=== PATIENT | female | born 1935 | race Caucasian/White ===

== ENCOUNTER → 2018-03-02 | Day surgery (SDC) | payer OTHER ==
[2018-02-27 15:59] LABS: BASOPHILS # (AUTO) 0.1 (0.0-0.1); BASOPHILS % 0.7 % (0.0-1.0); EOSINOPHILS # (AUTO) 0.3 (0.0-0.4); EOSINOPHILS % 4.4 % (0.0-6.0); HEMATOCRIT 41.9 % (34.2-44.1); HEMOGLOBIN 13.6 g/dL (12.0-16.0); LYMPHOCYTES # (AUTO) 1.9 (1.0-3.2); LYMPHOCYTES % 26.4 % (18.0-39.1); MEAN CORPUSCULAR HEMOGLOBIN 32.1 pg (28-32); MEAN CORPUSCULAR HGB CONC 32.5 g/dL (31-35); MEAN CORPUSCULAR VOLUME 98.8 fL (81-99); MONOCYTES # (AUTO) 0.4 (0.2-0.8); MONOCYTES % 6.3 % (4.4-11.3); NEUTROPHILS # (AUTO) 4.4 (2.1-6.9); NEUTROPHILS % 62.1 % (38.7-80.0); PLATELET COUNT 213 x10e3/uL (140-360); RED BLOOD COUNT 4.24 x10e6/uL (3.6-5.1); RED CELL DISTRIBUTION WIDTH 12.4 % (11.7-14.4)
--- NOTE | 2018-02-27 16:48 | Diagnostic Imaging Report ---
EXAMINATION: CHEST 2 VIEWS INDICATION: Pre-op COMPARISON: None FINDINGS: TUBES and LINES: None. LUNGS: Lungs are well inflated. Lungs are clear. There is no evidence of pneumonia or pulmonary edema. PLEURA: No pleural effusion or pneumothorax. HEART AND MEDIASTINUM: The cardiomediastinal silhouette is unremarkable. Extensive atherosclerotic calcifications of the thoracic aorta. BONES AND SOFT TISSUES: No acute osseous lesion. Soft tissues are unremarkable. UPPER ABDOMEN: No free air under the diaphragm. IMPRESSION: No acute radiographic abnormality. Signed by: Dr. Shravan Cohen MD on 02/27/2018 4:44 PM
[~2018-03-02] MED LIST: AMLODIPINE BESYL5 MG PO; CALCIUM600 MG PO; CEFTRIAXONE SOD 1 GM/NS 50 ML 50 ML IV ONE; DEXAMETHASONE SOD PHOS INJ 4 MG/ML VIAL ONE; EVISTA60 MG PO; FENTANYL CITRATE/PF 100MCG/2 ML INJ ONE; IOPAMIDOL 610MG/1ML 300 MG/ML VIAL IV ONE; LIDOCAINE HCL 2% LOCAL INJ 5 ML SDV VIAL INJ ONE; METOPROLOL SUCC25 MG PO; OMEPRAZOLE40 MG PO; ONDANSETRON HCL INJ 2MG/ML 2ML 2 MG/ML VIAL ONE; PROPOFOL IV EMULSION 10 MG/ML 20 ML VIAL ONE; SEVOFLURANE INHAL SOLN 250 ML PEN BTL ONE; SIMVASTATIN20 MG PO; ULTRAM 50MG50 MG PO; VITAMIN D32000 UNIT PO
--- OUTSIDE RECORDS SUMMARY | 2018-03-02 05:39 | XMS REPORT ---
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 Assessment Atypical chest pain R07.89 Active Assessment Reflux esophagitis K21.0 Active Problem 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 Problem Pure hypercholesterolemia E78.00 Active Problem Reflux esophagitis K21.0 Active Problem Pure hypercholesterolemia 272.0 Active Problem Benign hypertensive heart disease without heart failure 402.10 Active Problem 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 Problem 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 intermittent claudication 440.21 Active Medications Medication Code System Code Instructions Start Date End Date Status Dosage NITROGLYCER NDC 0 0.4MG SUB PRN Active as directed Omeprazole ND 12039545446 40 MG Orally Once a day Active 1 capsule Tramadol HCl ND 56873321524 50 MG Orally every 6 hrs Active 1 tablet as needed Calcium ND 60756245392 1200 MG Orally once a day Active 1 tablet Amlodipine Besylate ND 83658610885 5 MG Orally Once a day Active 1 tablet Nitrolingual ND 84095713386 0.4 MG/SPRAY Translingual every 8 hrs Active 1 puff Raloxifene HCl ND 77542028512 60 MG Orally Once a day Active 1 tablet Nitroglycerin ND 46342864699 0.4 MG Sublingual As directed Mar 06, 2017 Active as directed Simvastatin ND 12115658019 20 MG Orally Once a day Active 1 tablet every evening Vital Signs Date/Time: Mar 06, 2017 BMI 27.73 Index Weight 142 lbs Height 5'2 in Cardiac Monitoring Heart Rate 68 /min Blood Pressure Diastolic 70 mm Hg Blood Pressure Systolic 130 mm Hg Results No Known Results Summary Purpose [employer] Submission
--- OUTSIDE RECORDS SUMMARY | 2018-03-02 05:39 | XMS REPORT | Summary of Care ---
Author Organization Unknown Address Unknown Phone Unavailable Encounter Dates Location Diagnoses Discharge Providers Disposition 03/27/2013 [facility] Final: Disorder Home Claudia Molina [facility] and Claudia Molina 03/27/2013 [id number] [place] [facility], [address] , [facility] Unspecified Final: Unspecified Essential Hypertension Final: Coronary Atherosclerosis of [place] Coronary Artery Final: Pure Hypercholestero lemia Final: Osteoporosis, Unspecified Final: Arthropathy, Unspecified, Site Unspecified Final: Long-Term (Current) Use of Other Medications Reason for Visit SACRUM BIOPSY Vital Signs Most recent to 1 oldest [Reference Range]: Height 157.48 cm (03/27/2013 08:02:00 [facility]/[place]) Weight 72.727 kg (03/27/2013 08:02:00 [facility]) Body Mass Index 29.33 m2 (03/27/2013 08:02:00 [facility]) Problem List Condition Effective Dates Status Health Status Informant Arthritis(Confirmed) Active Cholesterol Active level(Confirmed)1 Hypertension(Confirm Active ed) Osteoporosis(Confirm Active ed) 1abnormal Allergies, Adverse Reactions, Alerts Status Substance Reaction Severity Active codeine Active Vicodin Medications Medication Instructions Start Date Stop Date Status tramadol 50 mg oral 50 mg=1 tab, PO, Q6H, Pain, # 40 03/27/2013 04/06/2013 Ordered tablet tab, 0 Refill(s) Medications Administered During Your Visit No data available for this section Immunizations Vaccine Date Refusal Reason tetanus-diphtheria toxoids 08/05/2010 Procedures Procedure Type Body Site Date of Procedure Related Diagnosis Biopsy of Bone Marrow 03/27/2013 00:00:00 [facility] Biopsy of bone using computed tomography (CT) guidance1 03/27/2013 00:00:00 [facility] Bone marrow; biopsy, needle or trocar 03/27/2013 00:00:00 [facility] Breast reduction, bilateral 2003 Computed tomography guidance for needle placement (eg, biopsy, aspiration, injection, localization device), radiological supervision and interpretation 03/27/2013 00:00:00 [facility] Hysterectomy Other Computerized Axial Tomography 03/27/2013 00:00:00 [facility] 1sacrum lesion Social History Social History Type Response Alcohol Current, Type Beer. Frequency: 1-2 times per week. Previous treatment: None. Alcohol use interferes with work or home: No. Drinks more than intended: No. Others hurt by drinking: No. Ready to change: No. Household alcohol concerns: No. Smoking Status Use: Former smoker. Type: Cigarettes. Tobacco smoke exposure: None. Did the Patient Smoke Cigarettes Anytime During the Last 365 Days? No. Cessation Counseling Provided? No.1 1quit 40 years ago Assessment and Plan Extracted from: Title: IR Sacral Biopsy Author: Will Wang Date: 03/27/2013 PROCEDURE REQUESTED: Needle biopsy sclerotic lesion left sacral wing REQUESTING PHYSICIAN: Claudia Molina MD HISTORY/INDICATIONS: 1cm densly sclerotic lesion in marrow left sacral wing, new finding since old imaging studies in 2006 and 2007. Lesion found incidentally during workup for right hip pain. No left sided symptoms. Weak FDG uptake in lesion and surrounding marrow on PET/CT. No history primary neoplasm. MEDICAL: Hypertension, CAD, hypercholesterol, osteoporosis, arthritis PROCEDURAL HISTORY: Heart cath 2006 and 2010, breast biopsy 2003, hernia repair, bilateral breast reduction 2002, hysterectomy MEDICATIONS: Metoprolol, amlopidine, NTG prn, simvistatin, tramadol, imdur ALLERGIES:Codeine, Vicoden PHYSICAL FINDINGS: BP 137/66 P 79 R 11 Alert, oriented, no acute distress SaO2 100% ETCO2 34 Regular rythym IMPRESSION: New sclerotic lesion left sacral wing PLAN: Needle biopsy sclerotic lesion left sacral wing with CT. Discussed procedure and risks with patient and , including nerve injury (lesion is subcortical anteriorly with lumbosacral plexus just on the other side) and non- diagnostic procedure due to difficulty targeting or inconclusive histology. ASA: II
--- OUTSIDE RECORDS SUMMARY | 2018-03-02 05:39 | XMS REPORT | CCD ---
Author Author Auto Generated Organization [facility] Address Unknown Phone Unavailable Care Team Providers Care Counter Supply Worker Name Role Phone Reyna Roth CP Allergies, Adverse Reactions, Alerts Substance Reaction Status codeine Active Vicodin Active Medications Medication Instructions Start Date End Date Status tetanus-diphtheria 0.5 ml, Route: IM, ONCE, Start 08/05/2010 08/05/2010 Completed toxoids date: 08/05/10 18:43:00, Stop date: 08/05/10 18:43:00 Immunizations Vaccine Date Status tetanus-diphtheria toxoids 08/05/2010 Auth (Verified)
--- OUTSIDE RECORDS SUMMARY | 2018-03-02 05:39 | XMS REPORT | Summary of Care ---
Author Author [facility] Organization [facility] Address Unknown Phone Unavailable Encounter HQ Kera(FIN) [id number] Date(s): 10/17/17 - 10/17/17 [facility] [address] [facility] [place] [phone] Discharge Disposition: Home or Self Care Attending Physician: Edie Mason MD Vital Signs Most recent to 1 oldest [Reference Range]: Height 157.48 cm (10/17/17 7:16 PM) Temperature Oral 97.1 DegF [96.4-99.1 DegF] (10/17/17 7:16 PM) Blood Pressure 149/69 mmHg [90-140/60-90 mmHg] *HI* (10/17/17 7:16 PM) Respiratory Rate 18 BRMIN [14-20 BRMIN] (10/17/17 7:16 PM) Peripheral Pulse 89 bpm Rate [60-100 bpm] (10/17/17 7:16 PM) Weight 64.545 kg (10/17/17 7:16 PM) Body Mass Index 26.03 m2 (10/17/17 7:16 PM) Problem List Condition Effective Dates Status Health Status Informant Arthritis(Confirmed) Active Cholesterol Active level(Confirmed)1 Hypertension(Confirm Active ed) Osteoporosis(Confirm Active ed) 1abnormal Allergies, Adverse Reactions, Alerts Substance Reaction Severity Status codeine Active Vicodin Active Medications ciprofloxacin 500 mg oral tablet 500 mg=1 tab, PO, Q12H, X 7 day, # 14 tab, 0 Refill(s), Pharmacy: [facility] [id number] Start Date: 10/17/17 Stop Date: 10/24/17 Status: Completed raloxifene 60 mg oral tablet 60 mg=1 tab, PO, Daily, # 30 tab, 0 Refill(s) Start Date: 10/17/17 Stop Date: 11/16/17 Status: Ordered Results URINE AND STOOL Most recent to 1 oldest [Reference Range]: POC UA Turbidity Cloudy [Clear] *ABN* (10/17/17 7:40 PM) POC UA Color Marisol [Yellow] *ABN* (10/17/17 7:40 PM) POC UA pH [5.0-8.0] 6.5 (10/17/17 7:40 PM) POC UA SG [<=1.030] 1.010 (10/17/17 7:40 PM) POC UA Glu [Negative Negative mg/dL mg/dL] *NA* (10/17/17 7:40 PM) POC UA Bld Large [Negative] *ABN* (10/17/17 7:40 PM) POC UA Ket [Negative Negative mg/dL mg/dL] *NA* (10/17/17 7:40 PM) POC UA Prot Trace mg/dL [Negative mg/dL] *ABN* (10/17/17 7:40 PM) POC UA Uro [0.1-1.0 0.2 EU/dL EU/dL] (10/17/17 7:40 PM) POC UA Bili Negative [Negative] *NA* (10/17/17 7:40 PM) POC UA LeukEst Large [Negative] *ABN* (10/17/17 7:40 PM) POC UA Nit Positive [Negative] *ABN* (10/17/17 7:40 PM) Immunizations Given and Recorded Vaccine Date Status Refusal Reason tetanus-diphtheria toxoids 08/05/10 Given Procedures Procedure Date Related Diagnosis Body Site Status Biopsy of bone using computed tomography (CT) 03/27/13 Completed guidance1 Breast reduction, bilateral 2002 Completed Hysterectomy Completed 1sacrum lesion Social History Social History Type Response Alcohol Current, Type Beer. Frequency: 1-2 times per week. Previous treatment: None. Alcohol use interferes with work or home: No. Drinks more than intended: No. Others hurt by drinking: No. Ready to change: No. Household alcohol concerns: No. Smoking Status Former smoker; Type: Cigarettes; Ready to change: No; Concerns about tobacco use in household: No; Exposure to Tobacco Smoke None; Cigarette Smoking Last 365 Days No; Reg Smoking Cessation Counseling No1 entered on: 10/17/17 1quit 40 years ago Assessment and Plan No data available for this section
--- OUTSIDE RECORDS SUMMARY | 2018-03-02 05:39 | XMS REPORT | Summary of Care ---
Author Author [facility] Organization [facility] Address Unknown Phone Unavailable Encounter HQ Encntr_alimayela(FIN) [id number] Date(s): 03/18/15 - 03/18/15 [facility] [address] [place] [address]- Final: Functional dyspepsia Discharge Disposition: Home Attending Physician: Anthony Lei MD Referring Physician: Anthony Lei MD Vital Signs No data available for this section Problem List Condition Effective Dates Status Health Status Informant Arthritis(Confirmed) Active Cholesterol Active level(Confirmed)1 Hypertension(Confirm Active ed) Osteoporosis(Confirm Active ed) 1abnormal Allergies, Adverse Reactions, Alerts Substance Reaction Severity Status codeine Active Vicodin Active Medications No data available for this section Results No data available for this section Immunizations Vaccine Date Refusal Reason tetanus-diphtheria toxoids 08/05/10 Procedures Procedure Date Related Diagnosis Body Site Biopsy of bone using computed tomography (CT) 03/27/13 guidance1 Breast reduction, bilateral 2003 Hysterectomy 1sacrum lesion Social History Social History Type Response Alcohol Current, Type Beer. Frequency: 1-2 times per week. Previous treatment: None. Alcohol use interferes with work or home: No. Drinks more than intended: No. Others hurt by drinking: No. Ready to change: No. Household alcohol concerns: No. Smoking Status Former smoker; Type: Cigarettes; Exposure to Tobacco Smoke None; Cigarette Smoking Last 365 Days No; Reg Smoking Cessation Counseling No1 1quit 40 years ago Assessment and Plan No data available for this section
--- OUTSIDE RECORDS SUMMARY | 2018-03-02 05:39 | XMS REPORT | Continuity of Care Document ---
Author Author [facility] Interface Address Unknown Phone Unavailable Problems Problem Status Onset Date Classification Date Reported Comments Source UTI Active 11/10/2017 [facility] I10/V85.21/E66.3/R13.10/K30 Active 03/04/2015 [facility] SACRUM BIOPSY Active 03/22/2013 [facility] SACRAL LESION/ABN CT Active 03/11/2013 [facility] Final: Functional dyspepsia 03/21/2015 [facility] Arthritis Active Problem 02/23/2018 [facility], Medical [facility] Cholesterol level<sup>1</sup> Active Problem 02/23/2018 abnormal [facility] Hypertension Active Problem 02/23/2018 [facility] Osteoporosis Active Problem 02/23/2018 [facility] Final: Disorder of Bone and Cartilage, Unspecified 04/04/2013 [facility] Final: Unspecified Essential Hypertension 04/04/2013 [facility] Final: Coronary Atherosclerosis of [place] Coronary Artery 04/04/2013 [facility] Final: Pure Hypercholesterolemia 04/04/2013 [facility] Final: Osteoporosis, Unspecified 04/04/2013 [facility] Final: Arthropathy, Unspecified, Site Unspecified 04/04/2013 [facility] Final: Long-Term Use of Other Medications 04/04/2013 [facility] Benign hypertensive heart disease without congestive heart failure [facility] Diagnosis [facility] Pure hypercholesterolemia Active Diagnosis 04/04/2017 [facility] Atheroscler-limb&claudic Active Diagnosis 04/04/2017 [facility] Atypical chest pain Active Diagnosis 04/04/2017 [facility] Reflux esophagitis Active Diagnosis 04/04/2017 [facility] Pure hypercholesterolemia Active Problem 04/04/2017 [facility] Benign hypertensive heart disease without heart failure Active Problem 04/04/2017 [facility] Atherosclerosis of [place] arteries of the extremities with intermittent claudication Active Problem 04/04/2017 [facility] BACK/ HIP PAIN Active [facility] ESSENTIAL (PRIMARY) HYPERTENSION Active [facility] OVERWEIGHT Active [facility] DYSPHAGIA, UNSPECIFIED Active [facility] FUNCTIONAL DYSPEPSIA Active [facility] Medications Medication Details Route Status Patient Instructions Ordering Provider Order Date Source ciprofloxacin 500 mg oral tablet 500 mg=1 tab, PO, Q12H, X 7 day, # 14 tab, 0 Refill(s), Pharmacy: [facility] [id number] No Longer Active 10/18/2017 [facility] raloxifene 60 mg oral tablet 60 mg=1 tab, PO, Daily, # 30 tab, 0 Refill(s) Active 10/18/2017 [facility] Nitroglycerin as directed Sublingual Active 0.4 MG Sublingual As directed [facility] 03/06/2017 [facility] tramadol hydrochloride 50 MG Oral Tablet 50 mg=1 tab, PO, Q6H, Pain, # 40 tab, 0 Refill(s) Active 03/27/2013 [facility] tetanus-diphtheria toxoids 0.5 ml, Route: IM, ONCE, Start date: 08/05/10 18:43:00, Stop date: 08/05/10 18:43:00 Inactive [facility] 08/05/2010 [facility] NITROGLYCER as directed NA Active 0.4MG SUB PRN [facility] Omeprazole 1 capsule Orally Active 40 MG Orally Once a day [facility] Tramadol HCl 1 tablet as needed Orally Active 50 MG Orally every 6 hrs [facility] Calcium 1 tablet Orally Active 1200 MG Orally once a day [facility] Amlodipine Besylate 1 tablet Orally Active 5 MG Orally Once a day [facility] Nitrolingual 1 puff Translingual Active 0.4 MG/SPRAY Translingual every 8 hrs [facility] Raloxifene HCl 1 tablet Orally Active 60 MG Orally Once a day [facility] Simvastatin 1 tablet every evening Orally Active 20 MG Orally Once a day [facility] Allergies, Adverse Reactions, Alerts Substance Category Reaction Severity Reaction type Status Date Reported Comments Source vicodin Adverse Reaction Info Not Available Adverse Reaction Active 03/06/2017 [facility] codeine Assertion Drug allergy Active [facility] Vicodin Assertion Drug allergy Active [facility] Immunizations Immunization Date Given Site Status Last Updated Comments Source tetanus-diphtheria toxoids 08/06/2010 completed Adam [facility] tetanus-diphtheria toxoids 08/06/2010 Right Deltoid completed Adam [facility] Results Order Name Results Value Reference Range Date Interpretation Comments Source URINE AND STOOL POC UA LeukEst Large *ABN* (10/17/17 7:40 PM) Negative 10/18/2017 [facility] URINE AND STOOL POC UA Glu Negative mg/dL Negative mg/dL 10/18/2017 [facility] URINE AND STOOL POC UA Prot Trace mg/dL Negative mg/dL 10/18/2017 [facility] URINE AND STOOL POC UA Nit Positive *ABN* (10/17/17 7:40 PM) Negative 10/18/2017 [facility] URINE AND STOOL POC UA Uro 0.2 EU/dL 0.1 - 1.0 10/18/2017 [facility] URINE AND STOOL POC UA Bld Large *ABN* (10/17/17 7:40 PM) Negative 10/18/2017 [facility] URINE AND STOOL POC UA Color Marisol *ABN* (10/17/17 7:40 PM) Yellow 10/18/2017 [facility] URINE AND STOOL POC UA SG 1.010 <=1.030 10/18/2017 [facility] URINE AND STOOL POC UA Turbidity Cloudy *ABN* (10/17/17 7:40 PM) Clear 10/18/2017 [facility] URINE AND STOOL POC UA pH 6.5 5.0 - 8.0 10/18/2017 [facility] URINE AND STOOL POC UA Bili Negative *NA* (10/17/17 7:40 PM) Negative 10/18/2017 [facility] URINE AND STOOL POC UA Ket Negative mg/dL Negative mg/dL 10/18/2017 [facility] Barium Swallow w Esophagus Function DX Barium Swallow w Esophagus Function DX Barium Swallow/Video esophagram: CLINICAL HX: Dysphagia, dyspepsia TECHNIQUE: Thin barium was utilized for prone and LPO images. Thick barium was utilized for upright imaging of the esophagus and pharynx. Hamburger meat with barium paste was given to evaluate motility with solids. FINDINGS: There is no delay in passage of bolus from the pharynx into the esophagus. The cricopharyngeus relaxes normally. There is no evidence for a cricopharyngeal bar or Zenker's diverticulum. Prone and LPO images of the esophagus reveal a small hiatal hernia, approximately 3 cm in size, at the GE junction. A Schatzki's ring is visualized immediately cephalad to the hernia. No significant delay in passage of barium from the esophagus to the stomach is noted. Upright images with thick barium reveal no significant dysmotility. No obstructing mass lesions noted. The small hiatal hernia persists on the upright images. Mild to moderate gastroesophageal reflux. Subsequently 2 separate swallows of a small piece of hamburger meat and barium were fluoroscopically followed through the length of esophagus. Piecemeal deglutition is noted. There is no significant delay in passage of the solid barium bolus from the pharynx to the esophagus and subsequently into the stomach. Overhead image performed at the conclusion of the procedure reveals prompt passage of barium from the stomach into the proximal small bowel. IMPRESSION: Small hiatal hernia is visualized at the GE junction. Mild to moderate gastroesophageal reflux. Schatzki's ring is visualized immediately cephalad to the hernia. Fluoroscopy Time: 2.3 minutes SL:13 03/18/2015 - - Read by: Diego Llamas MD Dictated Date/time: 03/18/15 17:43 Electronically Signed by: Diego Llamas MD 03/18/15 17:48 FINAL REPORT [facility] bone VR Biopsy bone VR NEEDLE BIOPSY OF THE SACRUM: HISTORY: 1 cm densely sclerotic lesion in the left sacral ala developing since previous imaging studies in 2006. This was discovered incidentally during work- up for right hip pain. PET/CT imaging described weak FDG uptake within and adjacent to the lesion. PROCEDURE: The procedure was done using CT guidance, sterile technique and local anesthetic. An 11-gauge bone biopsy needle was placed from a posterior approach adjacent to the small sclerotic lesion in the left anterior sacral ala demonstrated on the previous imaging studies. An aspirate from the marrow adjacent to the lesion was then obtained using a coaxial 18-gauge Chiba needle. A core from the lesion was subsequently obtained using the bone biopsy needle and placed into formalin for histology. Post biopsy CT showed a small lucent defect in the lesion consistent with the site of the biopsy. There was no evidence of penetration of the anterior cortex or hematoma in the presacral region. The patient tolerated the procedure well without immediate complications, and was discharged from [facility] in stable condition. SL:13 03/27/2013 - - Read by: Will Wang Dictated Date/time: 03/27/13 13:48 Electronically Signed by: Will Wang MD 03/27/13 13:58 FINAL REPORT [facility] PET CT Colorectal CA diagnosis PET CT Colorectal CA diagnosis PROCEDURE: PET CT Colorectal CA diagnosis CLINICAL INFORMATION Colorectal ca, sacral lesion, abn ct Height: 5 ' 2 " Weight: 160 pounds Glucose: The patient is not diabetic. FD.5 mCi. Injection site: Right antecubital Chemotherapy: None Radiation Therapy: None TECHNIQUE: Beginning approximately 60 minutes after tracer administration, routine whole- body PET/CT imaging was performed from the level of the skull base to the midthigh. PET imaging was obtained in the standard orthogonal projections. Noncontrast low dose CT imaging was performed for attenuation correction and localization. COMPARISON: MRI 03/21/2013. Plain films 03/04/2013. IVP 05/15/2007. CAT scan 05/09/2006. FINDINGS: HEAD AND NECK: There is physiologic intracranial activity with normal activity in the salivary glands and soft tissue structures of the neck. CHEST: There is normal mediastinal uptake with physiologic cardiac activity. There is no abnormal pulmonary parenchymal uptake. The heart is mildly enlarged. ABDOMEN AND PELVIS: The spleen, adrenal glands, pancreas and kidneys demonstrate normal activity. Low-density left hepatic lesion measures 6 to 7 mm, SUV 2.25. There is focal ascending colon wall thickening seen best on image 166, SUV measures 3.96. Increased uptake in the anal region on image 221 is noted, the SUV measures 5.5. BONE: Sclerotic lesion in the left sacrum measures 10-11 mm, SUV 2.1. There is surrounding marrow SUV uptake measuring up to 3.0. No other abnormal activity in the axial or appendicular skeleton is noted. Lesions measuring 5 mm or less may be below the resolution of PET-CT. False positive findings may be seen in granulomatous, infectious, inflammatory, post traumatic and postsurgical states. IMPRESSION: 1. Left sacral sclerotic lesion with SUV 2.1, with slightly increased uptake in the surrounding marrow uptake up to 3.0. This would be atypical for a bone island, metastatic disease is not entirely can excluded. Consider CT-guided biopsy or short term follow-up imaging to reevaluate. 2. Subtle foci of uptake with wall thickening in the right ascending colon as well as anal region. Correlation with a recent colonoscopy is recommended to assess for a neoplasm. 3. Low-density left lobe hepatic lesion without significant uptake. This can be reassessed on follow-up imaging. 4. Mild cardiomegaly. These findings were communicated to Dr. Molina via the [employer] system at 3:31 p.m. SL: 13 03/21/2013 - - Read by: Sachin Shelby Dictated Date/time: 03/21/13 14:57 Electronically Signed by: Sachin Shelby MD 03/21/13 15:34 FINAL REPORT [facility] Spine Sacrum w/wo contrast MRI Spine Sacrum w/wo contrast MRI ADDENDUM: The initial report incorrectly states "left iliac wing" in line 1 of the impression and should instead state "left sacral wing." The impression of the report should read as follows: IMPRESSION: 1. Intensely sclerotic lesion in the left sacral wing with mild associated eccentric marrow edema and enhancement. 2. Typically a bone island does not show this degree of sclerosis and is not associated with marrow edema or enhancement. 3. Typically a bone metastasis does not show this degree of sclerosis and is associated with more intense and concentric marrow edema and enhancement. 4. This lesion is unusual and not typical for benign bone island or osseous metastatic lesion. The lesion is indeterminate, but metastatic disease should be excluded. Recommend either further evaluation with CT guided biopsy if feasible or short- term follow-up imaging. SL: 12 MRI SACRUM WITHOUT AND WITH IV CONTRAST HISTORY: Abnormal CT, sacral lesion. Rectal cancer. COMPARISON: CT abdomen and pelvis dated 05/09/2006, lumbar spine radiography dated 03/04/2013, and PET/CT dated 03/21/2013 FINDINGS: The intensely sclerotic lesion within the left sacral wing is again noted measuring approximately 1 cm. There is a very mild amount of bone marrow edema/inflammatory signal eccentrically abutting the medial aspect of the sclerotic lesion with associated mild abnormal marrow enhancement. No soft tissue component of the lesion is identified. No other bone lesion is seen. IMPRESSION: 1. Intensely sclerotic lesion in the left iliac wing with mild associated eccentric marrow edema and enhancement. 2. Typically a bone island does not show this degree of sclerosis and is not associated with marrow edema or enhancement. 3. Typically a bone metastasis does not show this degree of sclerosis and is associated with more intense and concentric marrow edema and enhancement. 4. This lesion is unusual and not typical for benign bone island or osseous metastatic lesion. The lesion is indeterminate, but metastatic disease should be excluded. Recommend either further evaluation with CT guided biopsy if feasible or short- term follow-up imaging. SL: 12 03/21/2013 - - Read by: Venancio Snider Dictated Date/time: 03/21/13 16:37 Electronically Signed by: Venancio Snider MD 03/21/13 16:39 FINAL REPORT - - Read by: Venancio Snider Dictated Date/time: 03/21/13 13:27 Electronically Signed by: Venacnio Snider MD 03/21/13 13:49 FINAL REPORT [facility] Hip min 2 views Hip min 2 views PROCEDURE: Hip min 2 views CLINICAL INFORMATION hip pain COMPARISON: 02/2013 lumbar spine x-ray. Kidney IVP 05/15/2007. Two right. There is generalized osteopenia limiting assessment of bone detail. There is moderate to severe right inferior femoral acetabular joint osteoarthritic change. This consists of joint space loss and inferolateral spurring. There is mild superolateral acetabular spurring. The pubic rami and pubic symphysis are preserved. No displaced fracture or aggressive osseous process is identified within the limitations of osteopenia. If the clinical symptoms do not improve, consider a MRI of the right hip to assess for an occult process. SL: 13 03/04/2013 - - Read by: Sachin Shelby Dictated Date/time: 03/04/13 11:45 Electronically Signed by: Sachin Shelby MD 03/04/13 11:48 FINAL REPORT [facility] Spine lumbar minimum 4 views Spine lumbar minimum 4 views PROCEDURE: Spine lumbar series CLINICAL INFORMATION back pain COMPARISON: MRI 10/31/2006. CAT scan 05/29/2006. IVP 05/15/2007. Five views Osteopenia limits evaluation of detail. There is anterolisthesis of L5-S1 measuring 1-2 mm. The lumbar spine vertebral body heights are maintained. There is disc height loss greatest at L2-L3 with anterior spurring. The pedicles, spinous processes are preserved. The transverse processes are obscured by bowel gas. A sclerotic left sacral lesion measures 12 mm. This is not seen on the 05/09/2006 CAT scan or class a lineman IVP film from 05/15/2007. There is no spondylolysis. IMPRESSION: 1. Lumbar spondylosis as described above greatest at L2-L3. Mild anterolisthesis of L5 on S1. 2. New sclerotic lesion in the left superior sacrum not visible on prior exams. Bone island is considered though metastatic disease in the setting of primary carcinoma is not excluded. Consider a bone scan evaluation or MRI of the sacrum with gadolinium to further evaluate. These findings were communicated to Dr. Roth via the [employer] [employer] system at 11:45 a.m. SL: 13 03/04/2013 - - Read by: Sachin Shelby Dictated Date/time: 03/04/13 11:31 Electronically Signed by: Sachin Shelby MD 03/04/13 11:45 FINAL REPORT [facility] Vital Signs Vital Sign Value Date Comments Source Weight 64.545 10/18/2017 [facility] Height 157.48 cm 10/18/2017 [facility] Systolic (mm Hg) 149 10/18/2017 [facility] Diastolic (mm Hg) 69 10/18/2017 [facility] Temperature Oral (F) 97.1 F 10/18/2017 [facility] Heart Rate 89 10/18/2017 [facility] Respitory Rate 18 10/18/2017 [facility] BMI Calculated 26.03 10/18/2017 [facility] Weight 142 03/06/2017 [facility] Heart Rate 68 03/06/2017 [facility] Diastolic (mm Hg) 70 03/06/2017 [facility] Systolic (mm Hg) 130 03/06/2017 [facility] Height 157.48 cm 03/27/2013 [facility] BMI Calculated 29.33 03/27/2013 [facility] Weight 72.727 03/27/2013 [facility] Encounters Location Location Details Encounter Type Encounter Number Reason For Visit Attending Provider ADM Date DC Date Status Source [facility] Outpatient [id number] BACK/ HIP PAIN BASEM REINIER 03/04/2013 Active [facility] Outpatient [id number] SACRAL LESION/ABN CT IVÁN MOLINA 03/21/2013 Active [facility] Outpatient [id number] SACRUM BIOPSY IVÁNCHRISTIAN MOLINA 03/27/2013 Active [facility] Outpatient [id number] _[id number] Iván Molina 03/27/2013 03/28/2013 [facility] Outpatient [id number] Anthony Lei 03/18/2015 03/19/2015 [facility] Outpatient [id number] BENOIT MASON 10/17/2017 Active [facility] Outpatient [id number] Benoit Mason 10/18/2017 10/18/2017 [facility] Procedures Procedure Code Date Perfomer Comments Source Biopsy of bone using computed tomography (CT) guidance<sup>1</sup> [id number] 03/27/2013 sacrum lesion [facility] Biopsy of bone using computed tomography (CT) guidance<sup>1</sup> [id number] 03/27/2013 sacrum lesion [facility] Biopsy of Bone Marrow [id number] 03/27/2013 [facility] Bone marrow; biopsy, needle or trocar [id number] 03/27/2013 [facility] Computed tomography guidance for needle placement (eg, biopsy, aspiration, injection, localization device), radiological supervision and interpretation [id number] 03/27/2013 [facility] Other Computerized Axial Tomography 88.38 03/27/2013 [facility] Breast reduction, bilateral [id number] 02/06/2002 [facility] Breast reduction, bilateral [id number] 02/06/2002 [facility] Hysterectomy [id number] [facility] Hysterectomy [id number] [facility]
--- OUTSIDE RECORDS SUMMARY | 2018-03-02 05:39 | XMS REPORT | CCD ---
Author Author Auto Generated Organization [facility] Address Unknown Phone Unavailable Care Team Providers Care Supervisor Cloth Winding Name Role Phone Claudia Molina RP Allergies, Adverse Reactions, Alerts Substance Reaction Status codeine Active Vicodin Active Medications Medication Instructions Start Date End Date Status tetanus-diphtheria 0.5 ml, Route: IM, ONCE, Start 08/05/2010 08/05/2010 Completed toxoids date: 08/05/10 18:43:00, Stop date: 08/05/10 18:43:00 Immunizations Vaccine Date Status tetanus-diphtheria toxoids 08/05/2010 Auth (Verified)
--- OUTSIDE RECORDS SUMMARY | 2018-03-02 05:39 | XMS REPORT ---
Author Author [facility] Address Unknown Phone Unavailable Care Team Providers Care Certified Real Estate Appraiser Name Role Phone ALBINO BAKER Unavailable Unavailable Problems This patient has no known problems. Allergies, Adverse Reactions, Alerts This patient has no known allergies or adverse reactions. Medications This patient has no known medications. Results Test Description Test Time Test Comments Text Results Atomic Results Result Comments CHEST 2 VIEWS 2018-02-27 16:43:00 [facility] [address] [address] Patient Name: JOSE DE JESUS MAGAÑA MR #: [id number] : 1935 Age/Sex: 82/F Req #: [id number] Adm Physician: Ordered by: ALBINO BAKER MD Report #: [id number] Location: OR Room/Bed: Procedure: [id number] DX/CHEST 2 VIEWS Exam Date: 02/27/18 Exam Time: 1610 REPORT STATUS: Signed EXAMINATION: CHEST 2 VIEWS INDICATION: Pre-op C OMPARISON: None FINDINGS: TUBES and LINES: None. LUNGS: Lungs are well inflated. Lungs are clear. There is no evidence of pneumonia or pulmonary edema. PLEURA: No pleural effusion or pneumothorax. HEART AND MEDIASTINUM: The cardiomediastinal silhouette is unremarkable. Extensive atherosclerotic calcifications of the thoracic aorta. BONES AND SOFT TISSUES: No acute osseous lesion. Soft tissues are unremarkable. UPPER ABDOMEN: No free air under the diaphragm. IMPRESSION: No acute radiographic abnormality. Signed by: Dr. Clyde Garcia MD on 02/27/2018 4:44 PM Dictated By: CLYDE GARCIA MD 43 Transcribed By: ANTIONE on 02/27/181643 COPY TO: ALBINO BAKER MD
--- NOTE | 2018-03-02 07:10 | NUR ---
SPIRITUAL CARE - Pre-Surgery Assessment: Pt in bed. Pt's at bedside. Pt reported supportive attention from family and friends. Intervention: I provided pastoral presence, hospitality, sympathetic listening, and prayer. I acquainted pt with availability of electric stove mechanic while hospitalized. Outcome: Pt expressed appreciation for visit. No need for follow up indicated at this time. [facility] Spiritual Care Department O: [phone] Pager: [phone] ([phone] + number calling from)
[2018-03-02 09:00] VITALS: BP 129/66
--- NOTE | 2018-03-02 17:06 | Diagnostic Imaging Report ---
Bilateral retrograde urography Indications: UTI Comparison: None CPT code: 25521 RADIATION DOSE: Fluoroscopy Time: 00:00:43 hh:mm:ss Dose (Kerma) Area Product: 308.34 cGycm2 Air Kerma (AK) value has been reviewed. It is below the limits set by the Radiation Protocol Committee (RPC) committee. Findings: Contrast was injected into the left ureter in a retrograde fashion. The caliber of the left ureter appears normal. Left renal collecting system filled unremarkably. Contrast was injected into the right ureter in a retrograde fashion.The caliber of the right ureter appears normal. Right renal collecting system filled unremarkably. Other: Sclerotic, lobulated lesion in the left sacral ala has the appearance of an enchondroma. IMPRESSION: Unremarkable bilateral retrograde urography. Signed by: Dr. Angel Sanchez MD on 03/02/2018 5:03 PM
--- NOTE | 2018-03-05 09:41 | Operative Report ---
DATE OF PROCEDURE: March 02, 2018 PREOPERATIVE DIAGNOSES 1. Multiple chronic urinary tract infections. 2. Clinical signs and symptoms of interstitial cystitis. POSTOPERATIVE DIAGNOSES 1. Multiple chronic urinary tract infections. 2. Clinical signs and symptoms of interstitial cystitis. PROCEDURES 1. Cystourethroscopy with hydrodistention (entirely separate procedure for the clinical signs and symptoms of interstitial cystitis without hematuria). 2. Cystourethroscopy with left ureteral catheterization and left retrograde pyelogram (separate procedure for the multiple chronic urinary tract infections). 3. Cystourethroscopy with right ureteral catheterization and right retrograde pyelogram (separate procedure for the multiple chronic urinary tract infections). 4. Supervision of fluoroscopy. 5. Interpretation of retrograde pyelography. ANESTHESIA: General. ESTIMATED BLOOD LOSS: Minimal. COMPLICATIONS: None. INDICATIONS FOR PROCEDURE: Ms. Cortez is a very pleasant, 82-year-old female with a history of multiple chronic urinary tract infections. She and I had a long discussion regarding the alternatives, risks and benefits, including doing nothing, cystoscopy, IVP, retrograde pyelograms or ultrasound. She voiced an understanding of the options, the alternatives, and the risks and benefits, and she elected to proceed. PROCEDURE IN DETAIL: After informed consent was obtained, the patient was taken to the operative suite. She was placed supine on the table and underwent general anesthesia by the anesthesia service. She was placed in the dorsal lithotomy position. She was sterilely prepped and draped in the standard fashion for cystoscopy. A 22.5-Spanish cystoscope was inserted per urethra. A normal urethra was noted. Panendoscopy of the bladder revealed no tumors and no stones. Both ureteral orifices were in their normal anatomic location and position and were seen to efflux clear urine. Hydrodistention was performed with a capacity of 800 mL. No glomerulations and no Hunner ulcers. Bilateral retrograde pyelograms were performed, which were normal. The bladder was drained. The patient was awakened from anesthesia and transported to the recovery room in excellent condition. SUPERVISION OF FLUOROSCOPY AND INTERPRETATION OF RETROGRADE PYELOGRAPHY: I was present throughout the entire procedure and supervised the use of fluoroscopy as no radiologist was present. Attention was turned toward the left and right ureteral orifices, which were catheterized with an 8-Spanish, cone-tip catheter in a retrograde fashion. Contrast was injected revealing delicate ureters and delicate pelvicaliceal systems. No evidence of filling defect and no evidence of hydronephrosis. 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 Job#: [id number]
== END | disposition home or self-care (01) ==
LOC: OR 05:36
PROVIDERS: ATTEND Urology
DX: N39.0 Urinary tract infection, site not specified (principal); R35.1 Nocturia; I10 Essential (primary) hypertension; I49.3 Ventricular premature depolarization; E78.5 Hyperlipidemia, unspecified; K21.9 Gastro-esophageal reflux disease without esophagitis; Z88.6 Allergy status to analgesic agent; Z88.1 Allergy status to other antibiotic agents; Z01.810 Encounter for preprocedural cardiovascular examination; Z01.812 Encounter for preprocedural laboratory examination; Z01.818 Encounter for other preprocedural examination; Z87.891 Personal history of nicotine dependence
CPT/HCPCS: 36415; 52005; 71046; 74420; 85025; 93005; C1758; J0696; J1100; J2001; J2405; J2704; Q9967